=== PATIENT | female | born 2000 | race Caucasian/White ===

== ENCOUNTER 2024-06-16 19:40 | Emergency (ER) | payer OTHER ==
[~2024-06-16] VITALS: Ht 154.9 cm; Wt 49.9 kg
[2024-06-16 19:55] VITALS: BP 119/82; PULSE 98; RESP 16; TEMP 97.6; O2SAT 98
[2024-06-16 20:00] VITALS: BP 119/82; PULSE 98; RESP 16; TEMP 97.6; O2SAT 98
[2024-06-16] MEDS: KETOROLAC 30 MG/ML VIAL IM ONE (20:30)
[2024-06-16] MEDS: PHENAZOPYRIDINE 100 MG TAB PO ONE (20:46)
[2024-06-16 20:49] LABS: BILIRUBIN,URINE 1+ (NEGATIVE); BLOOD, URINE 3+ (NEGATIVE); COLOR,URINE YELLOW (YELLOW); LEUKOCYTE ESTERASE ,URINE TRACE (NEGATIVE); NITRITE, URINE POSITIVE (NEGATIVE); PH,URINE 5.5 (5.0-9.0); PROTEIN,URINE 2+ (NEGATIVE); UGLUCOSE NEGATIVE (NEGATIVE)
[2024-06-16 20:54] LABS: APPEARANCE,URINE SLIGHTLY BLOODY (CLEAR)
[2024-06-16 20:56] LABS: ICTOTEST NEGATIVE (NEGATIVE)
[2024-06-16] MEDS ORDERED: NITR100C7 PO (21:04)
[2024-06-16] MEDS ORDERED: PYR100 PO (21:04)
[2024-06-16] MEDS ORDERED: CHLO-757 PO (21:04)
[2024-06-16 21:06] LABS: BACTERIA,URINE 3+ /HPF (None Seen); MUCUS,URINE 2+ /LPF (None Seen); RBC,URINE TOO NUMEROUS TO COUN /HPF (0-5); SQUAMOUS EPITHELIAL CELL,UR 0-3 (FEW) /LPF (0-3 (FEW)); WBC,URINE >25 (MANY) /HPF (0-5)
== END 2024-06-16 21:16 | disposition home or self-care (01) ==
LOC: MED 19:40
DX: N39.0 Urinary tract infection, site not specified (principal); F41.9 Anxiety disorder, unspecified; F10.129 Alcohol abuse with intoxication, unspecified; Z79.899 Other long term (current) drug therapy; Y90.9 Presence of alcohol in blood, level not specified
CPT/HCPCS: 81001; 81025; 87086; 96372; 99283; J1885